=== PATIENT | male | born 1950 | race Caucasian/White ===

== ENCOUNTER 2020-06-08 12:25 | Inpatient (IN) | payer OTHER ==
[~2020-06-08] VITALS: Ht 165.1 cm; Wt 50.0 kg
[2020-06-08] MEDS ORDERED: LOPE1CAP5 PO (12:37)
[2020-06-08 13:18] LABS: HEMATOCRIT 39.8 % (42.0-52.0); HEMOGLOBIN 12.6 g/dl (13.5-17.5); MEAN CORPUSCULAR HEMOGLOBIN 27.8 pg (27.0-33.0); MEAN CORPUSCULAR HGB CONC 31.7 g/dl (32.0-36.5); MEAN CORPUSCULAR VOLUME 87.9 fl (80.0-96.0); PLATELET COUNT, AUTOMATED 184 10^3/uL (150-450); RED BLOOD COUNT 4.53 10^6/uL (4.30-6.10)
--- NOTE | 2020-06-08 13:53 | REP ---
INDICATION: confusion COMPARISON: None. TECHNIQUE: Axial noncontrast images from the skull base to the thoracic inlet with coronal reformations. This CT examination was performed using the following dose reduction techniques: Automated exposure control, adjustment of mA and/or kv according to the patient's size, and use of iterative reconstruction technique. FINDINGS: Age-related atrophy and microvascular ischemic changes are appreciated along with periventricular leukomalacia and encephalomalacia consistent with old infarction. The ventricles and sulci are symmetric. Nielsen-white differentiation is maintained. There is no evidence for acute intracranial hemorrhage, mass/mass effect, pathology or infarction. No extra-axial fluid collection. Calvarium is intact. Paranasal sinuses and mastoid air cells are clear. IMPRESSION: Atrophy and microvascular ischemic changes. No acute intracranial hemorrhage, infarction, or mass/mass effect. <Electronically signed by Floyd Sheppard > 06/08/20 [id number]
[2020-06-08] MEDS ORDERED: LIDOCAINE 2% 5ML JELLY UROJET TOP ONE (13:55)
[2020-06-08] MEDS ORDERED: NS 1,000 ML IV ONE (13:55)
[2020-06-08 13:56] LABS: ALT/SGPT 32 U/L (12-78); BILIRUBIN,DIRECT 0.7 MG/DL (0.0-0.2); BILIRUBIN,TOTAL 1.2 MG/DL (0.2-1.0); BLOOD UREA NITROGEN 35 MG/DL (7-18); C REACTIVE PROTEIN QUANTITATIV 7.38 MG/DL (0.00-0.30); CALCIUM LEVEL 10.3 MG/DL (8.8-10.2); CARBON DIOXIDE LEVEL 28 MEQ/L (21-32); CHLORIDE LEVEL 106 MEQ/L (98-107); CK-MB VALUE MASS 1.1 NG/ML (<3.6); CPK CREATINE PHOSPHOKINASE 36 U/L (39-308); CREATININE FOR GFR 0.99 MG/DL (0.70-1.30); GLOMERULAR FILTRATION RATE > 60.0 (>42); GLUCOSE, FASTING 103 MG/DL (70-100); LDH LACTATE DEHYDROGENASE 198 U/L (87-241); MAGNESIUM LEVEL 2.3 MG/DL (1.8-2.4); MB/CK RELATIVE INDEX 3.06 (< OR =4); POTASSIUM SERUM 4.4 MEQ/L (3.5-5.1); SODIUM LEVEL 138 MEQ/L (136-145); TROPONIN I 0.02 NG/ML (< 0.10)
--- NOTE | 2020-06-08 13:59 | REP ---
INDICATION: Coronavirus workup COMPARISON: 11/11/2010 TECHNIQUE: Portable AP view of the chest FINDINGS: Mediastinum and cardiac silhouette are normal. Lung mendes demonstrate diffuse chronic fibrosis and interstitial changes along with moderate cavitary lesion in the right upper lung zone with surrounding rind. Findings suggest changes related to granulomatous disease. No acute focal consolidation although superimposed viral pneumonia cannot be excluded. No effusion. No pneumothorax. IMPRESSION: Chronic appearing changes as described above suggest sequelae of prior granulomatous disease. Cannot definitively exclude acute viral pneumonia. No focal consolidation or effusion. <Electronically signed by Floyd Sheppard > 06/08/20 [id number]
[2020-06-08 14:31] LABS: ATYPICAL LYMPH 1 % (0-5); BASOPHILS 1 % (0-1); LYMPHOCYTES 10 % (16-44); MONOCYTES 2 % (0-5); NEUTROPHILS 75 % (28-66); PLATELET ESTIMATE NORMAL (NORMAL)
[2020-06-08 14:32] LABS: ANISOCYTOSIS 1+
[2020-06-08] MEDS ORDERED: guaiFENesin/CODEINE SYRUP 5 ML UDC PO PRN (15:20)
[2020-06-08] MEDS ORDERED: LEVALBUTEROL 1.25 MG/0.5 ML CONCENTRATE NEB INH PRN (15:20)
[2020-06-08] MEDS ORDERED: ACETAMINOPHEN TAB 650MG DOSE (2X325MG) PO PRN (15:20)
[2020-06-08] MEDS: LEVALBUTEROL 1.25 MG/0.5 ML CONCENTRATE NEB INH SCH ×2 (15:55→19:19)
[2020-06-08 16:18] VITALS: BP 126/68
[2020-06-08] MEDS: cefTRIAXone SOD 2 GM in D5W MINI-BAG PLUS 50 ML IV SCH (17:11)
--- NOTE | 2020-06-08 17:11 | REP ---
INDICATION: COUGH HEADACHE DIARRHEA R/O PNEUMONIA COMPARISON: None TECHNIQUE: Axial noncontrast images from the thoracic inlet to the upper abdomen with coronal and sagittal reformations. This CT examination was performed using the following dose reduction techniques: Automated exposure control, adjustment of mA and/or kv according to the patient's size, and use of iterative reconstruction technique. FINDINGS: Diffuse chronic reticulonodular interstitial changes along with fibrosis and scarring noted as well as irregular bronchiectasis throughout the bilateral lung mendes and most notably involving the right upper lobe leading to an irregular cavitary lesion. These findings all appear chronic and possibly related to emphysematous disease and prior granulomatous disease. Superimposed scattered small nodular and "tree-in-bud" opacities are identified primarily noted in the bilateral lower lobes along with suspected reactive mediastinal lymph nodes. No effusion. No pneumothorax. Mediastinum demonstrates atherosclerotic changes to the thoracic aorta and coronary arteries without aortic aneurysm or cardiomegaly. No pericardial effusion. Surrounding osseous structures are intact. IMPRESSION: 1. Significant chronic appearing changes as noted above including areas of bronchiectasis primarily extending into the right upper lobe and surrounding a moderate-sized chronic appearing cavitary lesion. Findings most compatible with emphysematous disease and chronic granulomatous disease. 2. Superimposed subtle primarily lower lobe infiltrates consistent with acute pneumonia. Follow-up to resolution recommended. <Electronically signed by Floyd Sheppard > 06/08/20 [id number]
[2020-06-08] MEDS: DOXYCYCLINE HYCLATE 100 MG in D5W MINI-BAG PLUS 100 ML IV SCH (18:01)
--- NOTE | 2020-06-08 18:16 | HPEPDOC ---
[facility] Medical History & Physical Date of Admission June 08, 2020 Date of Service: June 08, 2020 History and Physical CHIEF COMPLAINT: 30 pound weight loss, headache, dry cough, diarrhea HISTORY OF PRESENT ILLNESS: 70-year-old cachectic male with severe protein calorie malnutrition. BMI of 17.8, and hypoalbuminemia, COPD, not oxygen or steroid dependent, actively smoking a pack a day of cigarettes with over [id number] history of smoking, familial adenomatous polyposis status post total proctocolectomy with pouch ileoanal anastomosis, who lives alone with daughter visiting from [place] for the past 2 weeks, brought to the emergency room due to persistent diarrhea with nonbloody, non-mucousy stools 2-3 times a day for several months, 30 pound weight loss with decrease in appetite, generalized weakness, increasing abdominal distention, dry cough with occasional sputum without fever, chills and rigors for the past week, and diffuse headache without neck rigidity. Patient has not taken medications for diarrhea, headache, cough and was recently seen at the [facility] for abnormal findings on CT chest, status post bronchoscopy with bronchial washings negative for bacterial, fungal or viral infection. Patient was due to have a colonoscopy and was referred to Dr. Shane, but patient was noncompliant and did not go to his appointment last year or this year. Patient denies any chest pain, pressure, tightness, palpitations, lightheadedness, dizziness, nausea, vomiting, dysuria, urgency, frequency, polyphagia, polyuria. He denies any unusual lumps, bumps or skin rashes, mouth ulcers, or bloody diarrhea. In the emergency room despite being afebrile with normal white count, patient had bandemia of 11, and CT chest: bronchiectasis primarily extending into the right upper lobe and surrounding a moderate-sized chronic appearing cavitary lesion. Findings most compatible with emphysematous disease and chronic granulomatous disease. Superimposed subtle primarily lower lobe infiltrates consistent with acute pneumonia. Patient is being admitted for pneumonia in the setting of chronic granulomatous disease, emphysema and bronchiectasis with moderate size cavitary lesion status post bronchoscopy with negative bronchial washings. PAST MEDICAL HISTORY: bronchiectasis moderate-sized chronic appearing cavitary lesion. emphysema/COPD chronic granulomatous disease. pneumonia. Failure to thrive/severe protein calorie malnutrition Pulmonary cachexia Familial adenomatous polyp, status post total proctocolectomy with pouch ileoanal anastomosis PAST SURGICAL HISTORY: Familial adenomatous polyp, status post total proctocolectomy with pouch ileoanal anastomosis Bronchoscopy Colonoscopy Right knee replacement SOCIAL HISTORY: Over [id number] history of smoking, still smokes a pack a day. Retired. Denies alcohol abuse, recreational drug use. Healthcare proxy is patient's daughter full code FAMILY HISTORY: Noncontributory due to advanced age ALLERGIES: Please see below. REVIEW OF SYSTEMS: 10 point review of systems negative aside from positive findings in HPI HOME MEDICATIONS: Please see below. PHYSICAL EXAMINATION: VITAL SIGNS: See below GENERAL APPEARANCE: Cachectic . No conversational dyspnea hard of hearing. No tripod positioning. No cyanosis, icterus or jaundice HEENT: Dry mucous membranes, poor dentition, missing teeth. Dental caries. No JVD, thyromegaly, bitemporal wasting. No cervical, supraclavicular or axillary lymphadenopathy. No carotid bruit or stridor., No pallor.. No use of respiratory accessory muscles CARDIOVASCULAR: S1, S2, sinus rhythm, no murmurs, rubs or gallops LUNGS: Exposed ribs with muscle atrophy, diminished, prolonged expiration, crepitations bilaterally ABDOMEN: Distended, tympanitic, tense, no rebound, guarding EXTREMITIES: No cyanosis, clubbing LABORATORY DATA: See below. IMAGING: CT CHEST: 1. Significant chronic appearing changes as noted above including areas of bronchiectasis primarily extending into the right upper lobe and surrounding a moderate-sized chronic appearing cavitary lesion. Findings most compatible with emphysematous disease and chronic granulomatous disease. 2. Superimposed subtle primarily lower lobe infiltrates consistent with acute pneumonia. Follow-up to resolution recommended. MICROBIOLOGY: Please see below. ASSESSMENT: 70-year-old cachectic male with severe protein calorie malnutrition. BMI of 17.8, and hypoalbuminemia, COPD, not oxygen or steroid dependent, actively smoking a pack a day of cigarettes with over [id number] history of smoking, familial adenomatous polyposis status post total proctocolectomy with pouch ileoanal anastomosis, who lives alone with daughter visiting from [place] for the past 2 weeks, brought to the emergency room due to persistent diarrhea with nonbloody, non-mucousy stools 2-3 times a day for several months, 30 pound weight loss with decrease in appetite, generalized weakness, increasing abdominal distention, dry cough with occasional sputum without fever, chills and rigors for the past week, and diffuse headache without neck rigidity. Patient has not taken medications for diarrhea, headache, cough and was recently seen at the [facility] for abnormal findings on CT chest, status post bronchoscopy with bronchial washings negative for bacterial, fungal or viral infection. Patient was due to have a colonoscopy and was referred to Dr. Mariel hernandez, but patient was noncompliant and did not go to his appointment last year or this year. Patient denies any chest pain, pressure, tightness, palpitations, lightheadedness, dizziness, nausea, vomiting, dysuria, urgency, frequency, polyphagia, polyuria. He denies any unusual lumps, bumps or skin rashes, mouth ulcers, or bloody diarrhea. In the emergency room despite being afebrile with normal white count, patient had bandemia of 11, and CT chest: bronchiectasis primarily extending into the right upper lobe and surrounding a moderate-sized chronic appearing cavitary lesion. Findings most compatible with emphysematous disease and chronic granulomatous disease. Superimposed subtle primarily lower lobe infiltrates consistent with acute pneumonia. Patient is being admitted for pneumonia in the setting of chronic granulomatous disease, emphysema and bronchiectasis with moderate size cavitary lesion status post bronchoscopy with negative bronchial washings. Community acquired pneumonia bronchiectasis moderate-sized chronic appearing cavitary lesion, Status post bronchoscopy with negative fungal, viral, bacterial cultures negative for malignancy done at the [facility] in [place] emphysema/COPD chronic granulomatous disease. pneumonia. Failure to thrive/severe protein calorie malnutrition Pulmonary cachexia Familial adenomatous polyp, status post total proctocolectomy with pouch ileoanal anastomosis Anemia of chronic disease Bandemia secondary to community acquired pneumonia Hypercalcemia Abnormal liver function tests with hyperbilirubinemia 30 pound weight loss Diarrhea PLAN: Patient will be admitted as an inpatient for 2 midnights for evaluation of the 30 pound weight loss and treatment for community-acquired pneumonia. Check MRSA screen. Patient has been started on IV ceftriaxone and IV doxycycline day #1. Sputum, blood culture, urine Legionella and streptococcal antigen have all been ordered. Patient has significant amount of bronchiectasis and end-stage emphysema, which will be treated with chest physiotherapy. Mucinex acapella incentive spirometry, nebulizer treatments, aggressive pulmonary toilet. Patient does not appear to be in acute COPD exacerbation and steroids are not needed. Will obtain records from the recent bronchoscopy from the [facility], particularly microbiology results. For the patient's diarrhea, GI panel will be obtained. More concerning issues are the recent weight loss of 30 pounds and failure to thrive with severe protein calorie malnutrition, cachexia with bitemporal wasting. Thyroid function tests are within normal limits. Obtain ultrasound of the gallbladder regarding hyperbilirubinemia to rule out gallstone disease. Research Programmer consult and Ensure Plus 3 times a day with meals and daily at bedtime to improve patient's protein calorie malnutrition. Anti-emetics if needed. Will discuss the case with scientific software engineer in the morning to see if any other inpatient workup is needed.. We'll check parathyroid and vitamin D levels. Regarding the hypercalcemia and continue with IV fluids for now Vital Signs Vital Signs Date Time Temp Pulse Resp B/P (MAP) Pulse Ox O2 Delivery O2 Flow Rate FiO2 06/08/20 16:18 95.0 95 18 126/68 (87) 93 Room Air Laboratory Data Labs 24H Laboratory Tests 2 06/08/20 13:07: Neutrophils (%) (Auto) , Nucleated Red Blood Cells % (auto) 0.0, Neutrophils 75H, Band Neutrophils 11, Lymphocytes (Manual) 10L, Monocytes (Manual) 2, Basophils (Manual) 1, Atypical Lymphocytes 1, Anisocytosis 1+, Platelet Estimate NORMAL, Anion Gap 4L, Glomerular Filtration Rate > 60.0, Calcium Level 10.3H, Magnesium Level 2.3, Total Bilirubin 1.2H, Direct Bilirubin 0.7H, Aspartate Amino Transf (AST/SGOT) 36, Alanine Aminotransferase (ALT/SGPT) 32, Alkaline Phosphatase 263H, Lactate Dehydrogenase 198, Total Creatine Kinase 36L, Creatine Kinase MB 1.1, Creatine Kinase MB Relative Index 3.06, Troponin I 0.02, C- Reactive Protein, Quantitative 7.38H, Total Protein 8.0, Albumin 2.0L, Albumin/Globulin Ratio 0.3, Thyroid Stimulating Hormone (TSH) 3.250 06/08/20 13:32: Lactic Acid Level 1.5, Ammonia 18 06/08/20 13:35: 06/08/20 14:51: CBC/BMP Laboratory Tests 06/08/20 13:07 Microbiology Microbiology 06/08/20 Blood Culture, Received Pending 06/08/20 Blood Culture, Received Pending 06/08/20 Respiratory Virus Panel (PCR) (JEFF) - Final, Complete Home Medications Scheduled Loperamide HCl (Loperamide) 2 Mg Capsule, 2 MG PO TID Allergies Coded Allergies: No Known Allergies (Unverified , 06/08/20) A-FIB/CHADSVASC A-FIB History Current/History of A-Fib/PAF?: No Current PO Anticoag Therapy: No Age/Risk Factor Scoring CHADSVASC: CHADSVASC Response (Comments) Value Age Risk Factor Age 65-74 years old 1 Gender Risk Factor Male 0 Hx of CHF No 0 Hx of HTN No 0 Hx of Stroke/TIA/or VTE No 0 Hx of Diabetes No 0 Hx of Vascular Disease No 0 Total 1 Treatment Treatment ordered: NONE RAYA FRANKLIN MD June 08, 2020 17:51
[2020-06-08 19:02] LABS: HEMOGLOBIN A1c 5.4 %
[2020-06-08] MEDS ORDERED: NICOTINE 21MG/24HR 1 EA TRANSDERMAL TD PRN (19:35)
--- NOTE | 2020-06-08 19:43 | ECGEPIP ---
[facility] - ED Test Date: 2020-06-08 Pat Name: KAYDEN HALL Department: Room: - Gender: Male Fitter Hand: SABRA : 1950 Requested By: Jose Zavala Order Number: [id number] Reading MD: Jose Zavala Measurements Intervals [place] Rate: 86 P: 60 FL: 164 QRS: 29 QRSD: 84 T: 6 QT: 344 QTc: 411 Interpretive Statements Normal sinus rhythm Nonspecific T wave abnormality No prior ECG for comparison Electronically Signed on 06-08-2020 19:43:08 EDT by Jose Zavala
[2020-06-08 20:17] VITALS: BP 116/74
[2020-06-08] MEDS: D5W/0.45% SODIUM CHLORIDE 1,000 ML IV SCH (20:23)
[2020-06-08 20:50] LABS: AMPHETAMINES LEVEL URINE NEGATIVE (NEGATIVE); BARBITURATES URINE NEGATIVE (NEGATIVE); BENZODIAZEPINES URINE NEGATIVE (NEGATIVE); CANNABINOIDS URINE NEGATIVE (NEGATIVE); COCAINE METABOLITE URINE NEGATIVE (NEGATIVE); METHADONE URINE NEGATIVE (NEGATIVE); OPIATES URINE NEGATIVE (NEGATIVE); PHENCYCLIDINE URINE NEGATIVE (NEGATIVE)
[2020-06-09] MEDS ORDERED: NS 1,000 ML IV ONE
[2020-06-09 06:00] VITALS: BP 120/72
[2020-06-09] MEDS: DOXYCYCLINE HYCLATE 100 MG in D5W MINI-BAG PLUS 100 ML IV SCH ×2 (06:25→17:36)
[2020-06-09] MEDS: D5W/0.45% SODIUM CHLORIDE 1,000 ML IV SCH ×2 (06:25→15:45)
[2020-06-09 06:52] LABS: MEAN CORPUSCULAR HEMOGLOBIN 27.6 pg (27.0-33.0); MEAN CORPUSCULAR HGB CONC 31.4 g/dl (32.0-36.5); MEAN CORPUSCULAR VOLUME 87.9 fl (80.0-96.0); PLATELET COUNT, AUTOMATED 156 10^3/uL (150-450); RED BLOOD COUNT 3.98 10^6/uL (4.30-6.10); WHITE BLOOD COUNT 3.5 10^3/uL (4.0-10.0)
[2020-06-09 07:15] LABS: BASOPHILS 1 % (0-1); LYMPHOCYTES 6 % (16-44); MONOCYTES 8 % (0-5); NEUTROPHILS 85 % (28-66)
[2020-06-09 07:16] LABS: PLATELET ESTIMATE NORMAL (NORMAL)
[2020-06-09 07:18] LABS: BLOOD UREA NITROGEN 29 MG/DL (7-18); CALCIUM LEVEL 9.6 MG/DL (8.8-10.2); CARBON DIOXIDE LEVEL 25 MEQ/L (21-32); CHLORIDE LEVEL 110 MEQ/L (98-107); CREATININE FOR GFR 0.82 MG/DL (0.70-1.30); GLOMERULAR FILTRATION RATE > 60.0 (>42); GLUCOSE, FASTING 113 MG/DL (70-100); POTASSIUM SERUM 3.7 MEQ/L (3.5-5.1); SODIUM LEVEL 141 MEQ/L (136-145)
[2020-06-09] MEDS: LEVALBUTEROL 1.25 MG/0.5 ML CONCENTRATE NEB INH SCH ×4 (08:00→19:35)
[2020-06-09] MEDS ORDERED: ISOVUE-370 76% 100ML VIAL As Ordered ONE (08:09)
--- NOTE | 2020-06-09 08:22 | REP ---
INDICATION: elevated bilirubin r/o gallstones COMPARISON: None. TECHNIQUE: Real time alaniz scale ultrasound examination using curved array transducer. FINDINGS: Evaluation is significantly limited due to overlying bowel gas. Visualized portions of the liver demonstrate increased echogenicity suggesting fatty infiltration. Pancreas is incompletely evaluated. Gallbladder demonstrates multiple gallstones without obvious wall thickening or pericholecystic fluid. The common bile duct is not identified due to overlying bowel gas and technical factors. The right kidney is obscured by bowel gas. IMPRESSION: Significantly limited examination due to diffuse bowel gas and associated technical factors. Cholelithiasis noted. <Electronically signed by Floyd Sheppard > 06/09/20 [id number]
--- NOTE | 2020-06-09 08:46 | REP ---
INDICATION: 30 lb weight loss, weakness r/o lymphoma. COMPARISON: None TECHNIQUE: Axial contrast-enhanced images from the lung bases to the pubic symphysis using 100 cc Isovue 370 intravenous contrast material. Coronal and sagittal reformations obtained. This CT examination was performed using the following dose reduction techniques: Automated exposure control, adjustment of mA and/or kv according to the patient's size, and the use of iterative reconstruction technique. FINDINGS: The small and large bowel is diffusely dilated and partially fluid-filled most suggestive of. However the rectosigmoid demonstrates most pronounced level of distension with air-fluid level tapering to the rectum at the point of surgical suture material suggesting prior procedure and obstruction at this level cannot be excluded (series 201; images 131-150). Liver, spleen, pancreas, right adrenal gland and right kidney appear normal. Cholelithiasis noted without evidence for acute cholecystitis. There is a 2.3 cm enhancing left adrenal lesion which is nonspecific in appearance. The left kidney demonstrates cortical atrophy with scarring and 1.5 cm hypodense lesion likely representing cyst. Pelvis demonstrates relatively normal bladder and age-appropriate prostate/seminal vesicles. Patient is noted to be status post aortoiliac stent graft without current aneurysmal dilatation. No significant ascites. No obvious adenopathy. Lung bases demonstrate diffuse interstitial changes with fibrosis and bronchiectasis as well as scattered scarring and scattered subtle primarily lower lobe airspace disease. IMPRESSION: 1. Diffuse distention to the small and large bowel which appears to taper through the rectosigmoid junction at the site of prior surgery. This may represent an area of obstruction and correlation is required. 2. 2.3 cm enhancing left adrenal lesion is nonspecific. Consider pre and postcontrast with delayed images of the abdomen for further investigation. 3. Presumed left renal cyst although ultrasound evaluation/follow-up may be warranted. 4. Cholelithiasis. 5. Further nonacute findings as described above. <Electronically signed by Floyd Sheppard > 06/09/20 [id number]
--- NOTE | 2020-06-09 11:56 | IPNPDOC ---
Date Seen The patient was seen on 06/09/20. Progress Note SUBJECTIVE: Patient denies nausea, vomiting. Chronic loose bowel movements. No chest pain, pressure, tightness. No fever, chills, still with a productive cough, thick white sputum. PHYSICAL EXAMINATION: VITAL SIGNS: See below GENERAL APPEARANCE: Cachectic . No conversational dyspnea hard of hearing. No tripod positioning. No cyanosis, icterus or jaundice HEENT: Dry mucous membranes, poor dentition, missing teeth. Dental caries. No JVD, thyromegaly, bitemporal wasting. No cervical, supraclavicular or axillary lymphadenopathy. No carotid bruit or stridor., No pallor.. No use of respiratory accessory muscles CARDIOVASCULAR: S1, S2, sinus rhythm, no murmurs, rubs or gallops LUNGS: Exposed ribs with muscle atrophy, diminished, prolonged expiration, crepitations bilaterally ABDOMEN: Reducible abdominal hernia Distended, tympanitic, tense, no rebound, guarding EXTREMITIES: No cyanosis, clubbing LABORATORY DATA: See below. IMAGING: CT CHEST: 1. Significant chronic appearing changes as noted above including areas of bronchiectasis primarily extending into the right upper lobe and surrounding a moderate-sized chronic appearing cavitary lesion. Findings most compatible with emphysematous disease and chronic granulomatous disease. 2. Superimposed subtle primarily lower lobe infiltrates consistent with acute pneumonia. Follow-up to resolution recommended. MICROBIOLOGY: Please see below. ASSESSMENT: 70-year-old cachectic male with severe protein calorie malnutrition. BMI of 17.8, and hypoalbuminemia, COPD, not oxygen or steroid dependent, actively smoking a pack a day of cigarettes with over [id number] history of smoking, familial adenomatous polyposis status post total proctocolectomy with pouch ileoanal anastomosis, who lives alone with daughter visiting from [place] for the past 2 weeks, brought to the emergency room due to persistent diarrhea with nonbloody, non-mucousy stools 2-3 times a day for several months, 30 pound weight loss with decrease in appetite, generalized weakness, increasing abdominal distention, dry cough with occasional sputum without fever, chills and rigors for the past week, and diffuse headache without neck rigidity. Patient has not taken medications for diarrhea, headache, cough and was recently seen at the [facility] for abnormal findings on CT chest, status post bronchoscopy with bronchial washings negative for bacterial, fungal or viral infection. Patient was due to have a colonoscopy and was referred to Dr. Alex horan, but patient was noncompliant and did not go to his appointment last year or this year. Patient denies any chest pain, pressure, tightness, palpitations, lightheadedness, dizziness, nausea, vomiting, dysuria, urgency, frequency, polyphagia, polyuria. He denies any unusual lumps, bumps or skin rashes, mouth ulcers, or bloody diarrhea. In the emergency room despite being afebrile with normal white count, patient had bandemia of 11, and CT chest: bronchiectasis primarily extending into the right upper lobe and surrounding a moderate-sized chronic appearing cavitary lesion. Findings most compatible with emphysematous disease and chronic granulomatous disease. Superimposed subtle primarily lower lobe infiltrates consistent with acute pneumonia. Patient is being admitted for pneumonia in the setting of chronic granulomatous disease, emphysema and bronchiectasis with moderate size cavitary lesion status post bronchoscopy with negative bronchial washings. Community acquired pneumonia bronchiectasis moderate-sized chronic appearing cavitary lesion, Status post bronchoscopy with negative fungal, viral, bacterial cultures negative for malignancy done at the [facility] in [place] Reducible abdominal hernia Cholelithiasis emphysema/COPD chronic granulomatous disease. Diffuse distention to the small and large bowel which may represent an area of obstruction 2.3 cm enhancing left adrenal lesion Failure to thrive/severe protein calorie malnutrition Pulmonary cachexia Familial adenomatous polyp, status post total proctocolectomy with pouch ileoanal anastomosis Anemia of chronic disease Bandemia secondary to community acquired pneumonia Hypercalcemia Abnormal liver function tests with hyperbilirubinemia 30 pound weight loss Diarrhea PLAN: Supportive care with IV fluids, IV antibiotics. Surgical consult to evaluate chronic diarrhea which is common with total colectomy. Patient may need a feeding tube if he is agreeable. Otherwise, the trimming assembler has been consulted for supplemental nutrition. . Await culture results from the [facility] regarding recent bronchoscopy for fungal, viral, bacterial cultures Patient lives alone and daughter. Healthcare proxy is worried about him taking care of himself at home and is opting for possible assisted living or placement VS, I&O, 24H, Fishbone Vital Signs/I&O Vital Signs Date Time Temp Pulse Resp B/P (MAP) Pulse Ox O2 Delivery O2 Flow Rate FiO2 06/09/20 11:33 14 06/09/20 06:00 97.1 90 120/72 (88) 95 Room Air I&O- Last 24 Hours up to 6 AM 06/09/20 06:00 Intake Total 100 ml Output Total 250 ml Balance -150 ml Laboratory Data 24H LABS Laboratory Tests 2 06/08/20 13:07: Neutrophils (%) (Auto) , Nucleated Red Blood Cells % (auto) 0.0, Neutrophils 75H, Band Neutrophils 11, Lymphocytes (Manual) 10L, Monocytes (Manual) 2, Basophils (Manual) 1, Atypical Lymphocytes 1, Anisocytosis 1+, Platelet Estimate NORMAL, Anion Gap 4L, Glomerular Filtration Rate > 60.0, Estimated Mean Plasma Glucose 108, Hemoglobin A1c 5.4, Calcium Level 10.3H, Magnesium Level 2.3, Total Bilirubin 1.2H, Direct Bilirubin 0.7H, Aspartate Amino Transf (AST/SGOT) 36, Alanine Aminotransferase (ALT/SGPT) 32, Alkaline Phosphatase 263H, Lactate Dehydrogenase 198, Total Creatine Kinase 36L, Creatine Kinase MB 1.1, Creatine Kinase MB Relative Index 3.06, Troponin I 0.02, C-Reactive Protein, Quantitative 7.38H, Total Protein 8.0, Albumin 2.0L, Albumin/Globulin Ratio 0.3, Thyroid Stimulating Hormone (TSH) 3.250 06/08/20 13:32: Lactic Acid Level 1.5, Ammonia 18 06/08/20 13:35: 06/08/20 14:51: Urine Color MARVIN, Urine Appearance CLEAR, Urine pH 5.0, Urine Specific [place] 1.017, Urine Protein 1+H, Urine Glucose (UA) NEGATIVE, Urine Ketones NEGATIVE, Urine Blood 1+H, Urine Nitrite NEGATIVE, Urine Bilirubin NEGATIVE, Urine Urobilinogen 4.0H, Urine Leukocyte Esterase NEGATIVE, Urine WBC (Auto) 4H, Urine RBC (Auto) 3, Urine Hyaline Casts (Auto) 1, Urine Bacteria (Auto) NEGATIVE, Urine Squamous Epithelial Cells 0, Urine Sperm (Auto) , Urine Opiates Screen NEGATIVE, Urine Methadone Screen NEGATIVE, Urine Barbiturates Screen NEGATIVE, Urine Phencyclidine Screen NEGATIVE, Urine Amphetamines Screen NEGATIVE, Urine Benzodiazepines Screen NEGATIVE, Urine Cocaine Metabolite Screen NEGATIVE, Urine Cannabinoids Screen NEGATIVE 06/08/20 18:32: Methicillin-Resist S.aureus DNA PCR NOT DETECTED 06/08/20 19:55: Whole Blood Ionized Calcium 5.2 06/09/20 06:37: Neutrophils (%) (Auto) , Nucleated Red Blood Cells % (auto) 0.0, Neutrophils 85H, Lymphocytes (Manual) 6L, Monocytes (Manual) 8H, Basophils (Manual) 1, Red Blood Cell Morphology NORMAL, Platelet Estimate NORMAL, Anion Gap 6L, Glomerular Filtration Rate > 60.0, Calcium Level 9.6 CBC/BMP Laboratory Tests 06/08/20 13:07 06/09/20 06:37 Microbiology Microbiology 06/08/20 Gastrointestinal Tract Panel (PCR), Received Pending 06/08/20 Blood Culture, Received Pending 06/08/20 Blood Culture, Received Pending 06/08/20 Respiratory Virus Panel (PCR) (JEFF) - Final, Complete RAYA FRANKLIN MD June 09, 2020 11:48
[2020-06-09 14:00] VITALS: BP 128/77
[2020-06-09] MEDS: cefTRIAXone SOD 2 GM in D5W MINI-BAG PLUS 50 ML IV SCH (16:13)
[2020-06-09 22:00] VITALS: BP 108/68
[2020-06-10] VITALS (8 sets, daily range): BP systolic 97–115; BP diastolic 59–86
[2020-06-10] MEDS: DOXYCYCLINE HYCLATE 100 MG in D5W MINI-BAG PLUS 100 ML IV SCH ×2 (06:14→18:18)
[2020-06-10 06:35] LABS: MEAN CORPUSCULAR HEMOGLOBIN 28.5 pg (27.0-33.0); MEAN CORPUSCULAR HGB CONC 32.4 g/dl (32.0-36.5); MEAN CORPUSCULAR VOLUME 88.1 fl (80.0-96.0); PLATELET COUNT, AUTOMATED 137 10^3/uL (150-450); RED BLOOD COUNT 3.86 10^6/uL (4.30-6.10); WHITE BLOOD COUNT 4.1 10^3/uL (4.0-10.0)
[2020-06-10 06:53] LABS: BLOOD UREA NITROGEN 21 MG/DL (7-18); CALCIUM LEVEL 8.9 MG/DL (8.8-10.2); CARBON DIOXIDE LEVEL 25 MEQ/L (21-32); CHLORIDE LEVEL 111 MEQ/L (98-107); CREATININE FOR GFR 0.65 MG/DL (0.70-1.30); GLOMERULAR FILTRATION RATE > 60.0 (>42); GLUCOSE, FASTING 80 MG/DL (70-100); POTASSIUM SERUM 3.5 MEQ/L (3.5-5.1); SODIUM LEVEL 140 MEQ/L (136-145)
[2020-06-10 07:02] LABS: EOSINOPHILS 1 % (0-3); LYMPHOCYTES 9 % (16-44); MONOCYTES 2 % (0-5); NEUTROPHILS 86 % (28-66); PLATELET ESTIMATE NORMAL (NORMAL)
[2020-06-10] MEDS: LEVALBUTEROL 1.25 MG/0.5 ML CONCENTRATE NEB INH SCH ×4 (07:26→19:36)
--- NOTE | 2020-06-10 09:13 | IPNPDOC ---
Text Note Date of Service The patient was seen on 06/10/20. NOTE 70y/o male with protein calorie malnutrition. I discussed PEG tube wit him and his daughter yesterday and he agreed. Plan is for PEG this am. I will obtain phone consent from the daughter this am. No changes to H+P. Christiano Rudd DO VS,Jordy, I+O VS, Jordy, I+O Laboratory Tests 06/10/20 06:13 Vital Signs Date Time Temp Pulse Resp B/P (MAP) Pulse Ox O2 Delivery O2 Flow Rate FiO2 06/10/20 08:15 98.6 100 20 110/67 (81) 94 Room Air I&O- Last 24 Hours up to 6 AM 06/10/20 06:00 Intake Total 2560 ml Output Total 725 ml Balance 1835 ml KYA RUDD DO June 10, 2020 09:13
[2020-06-10] MEDS ORDERED: LIDOCAINE 2% 100MG/5ML SDV (FOR ANES.) As Ordered ONE (09:14)
[2020-06-10] MEDS ORDERED: propofoL 200 MG/20 ML VIAL As Ordered ONE (09:14)
[2020-06-10] MEDS ORDERED: fentaNYL 100 MCG/2 ML INJECTION (J3010) As Ordered ONE (09:14)
--- NOTE | 2020-06-10 09:50 | ROOR ---
Patient Name: Tamara Fuentes Procedure Date: 06/10/2020 9:23 AM Date of : 1950 Age: 70 Room: [facility] Gender: Male Note Status: Finalized Procedure: Upper GI endoscopy Indications: Malnutrition Providers: DO Jabier Sheth MD: 2. Inpatient 2. Inpatient Requesting Provider: Medicines: Propofol per Anesthesia Complications: No immediate complications. Procedure: Pre-Anesthesia Assessment: - Prior to the procedure, a History and Physical was performed, and patient medications and allergies were reviewed. The patient is competent. The risks and benefits of the procedure and the sedation options and risks were discussed with the patient. All questions were answered and informed consent was obtained. Patient identification and proposed procedure were verified by the physician, the nurse, the anesthesiologist and the office machine technician in the endoscopy suite. Mental Status Examination: alert and oriented. Airway Examination: normal oropharyngeal airway and neck mobility. Respiratory Examination: clear to auscultation. CV Examination: normal. Prophylactic Antibiotics: The patient does not require prophylactic antibiotics. Prior Anticoagulants: The patient has taken no previous anticoagulant or antiplatelet agents. ASA Grade Assessment: III - A patient with severe systemic disease. After reviewing the risks and benefits, the patient was deemed in satisfactory condition to undergo the procedure. The anesthesia plan was to use monitored anesthesia care (MAC). Immediately prior to administration of medications, the patient was re-assessed for adequacy to receive sedatives. The heart rate, respiratory rate, oxygen saturations, blood pressure, adequacy of pulmonary ventilation, and response to care were monitored throughout the procedure. The physical status of the patient was re-assessed after the procedure. The Endoscope was introduced through the mouth, and advanced to the pylorus. The upper GI endoscopy was accomplished without difficulty. The patient tolerated the procedure well. Findings: Placement of an externally removable PEG with no T-fasteners was successfully completed. The external bumper was at the 3.0 cm marking on the tube. Estimated blood loss was minimal. Impression: - An externally removable PEG placement was successfully completed. - No specimens collected. Recommendation: - [facility] to [facility] for [facility] care. Procedure Code(s): --- Professional --- 70442, 52, Esophagogastroduodenoscopy, flexible, transoral; with directed placement of percutaneous gastrostomy tube Diagnosis Code(s): --- Professional --- E46, Unspecified protein-calorie malnutrition CPT copyright 2019 [employer]. All rights reserved. The codes documented in this report are preliminary and upon auditing coder review may be revised to meet current compliance requirements. Duarte Rudd DO 06/10/2020 9:50:23 AM Electronically signed by Duarte Rudd DO Number of Addenda: 0 Note Initiated On: 06/10/2020 9:23 AM Estimated Blood Loss: Estimated blood loss was minimal.
[2020-06-10] MEDS: cefTRIAXone SOD 2 GM in D5W MINI-BAG PLUS 50 ML IV SCH (17:32)
--- NOTE | 2020-06-10 19:38 | IPNPDOC ---
Date Seen The patient was seen on 06/10/20. Progress Note SUBJECTIVE: PEG placed today, cannot use until 06/11/20 per surgery. Would appreciate nutrition recommendations for tube feedings. Awaiting [place] records for bronchoscopy results. OBJECTIVE: PHYSICAL EXAMINATION: VITAL SIGNS: See below GENERAL APPEARANCE: Cachectic, hard of hearing, NAD, resting in bed. AAOx2 HEENT: Dry mucous membranes, poor dentition, missing teeth. Dental caries. No JVD, thyromegaly, bitemporal wasting. No carotid bruit or stridor., No pallor.. No use of respiratory accessory muscles CARDIOVASCULAR: S1, S2, sinus rhythm, no murmurs, rubs or gallops LUNGS: Exposed ribs with muscle atrophy, diminished, prolonged expiration, crepitations bilaterally ABDOMEN: PEG tube in place in left upper quadrant. Reducible abdominal hernia Distended, tympanitic, tense, no rebound, guarding EXTREMITIES: No cyanosis, clubbing NEURO: CN 2-12 intact, no focal deficits PSYCH: mood and affect appropriate. LABORATORY DATA: See below. MICRO: Resp panel neg BCx NG GI panel pending IMAGING: Gallbladder US 06/09/20: Significantly limited examination due to diffuse bowel gas and associated technical factors. Cholelithiasis noted. CT CHEST: 1. Significant chronic appearing changes as noted above including areas of bronchiectasis primarily extending into the right upper lobe and surrounding a moderate-sized chronic appearing cavitary lesion. Findings most compatible with emphysematous disease and chronic granulomatous disease. 2. Superimposed subtle primarily lower lobe infiltrates consistent with acute pneumonia. Follow-up to resolution recommended. MICROBIOLOGY: Please see below. ASSESSMENT: 70-year-old cachectic male with severe protein calorie malnutrition. BMI of 17.8, and hypoalbuminemia, COPD, not oxygen or steroid dependent, actively smoking a pack a day of cigarettes with over [id number] history of smoking, familial adenomatous polyposis status post total proctocolectomy with pouch ileoanal anastomosis admitted for pneumonia in the setting of chronic granulomatous disease, emphysema and bronchiectasis with moderate size cavitary lesion status post bronchoscopy with negative bronchial washings, FTT, chronic diarrhea. Failure to thrive/severe protein calorie malnutrition s/p PEG tube Chronic diarrhea likely 2/2 to total colectomy Community acquired pneumonia Bronchiectasis Moderate-sized chronic appearing cavitary lesion s/p bronchoscopy with negative fungal, viral, bacterial cultures negative for malignancy done at the [facility] in [place] (do not have records so unsure how previous attending knows this- requesting official documents) Reducible abdominal hernia Cholelithiasis Emphysema/COPD Chronic granulomatous disease 2.3 cm enhancing left adrenal lesion Pulmonary cachexia Familial adenomatous polyp, status post total proctocolectomy with pouch ileoanal anastomosis Anemia of chronic disease Bandemia secondary to community acquired pneumonia Hypercalcemia Abnormal liver function tests with hyperbilirubinemia PLAN: PEG tube placed by surgery today, tolerated procedure well. TF to start 06/11/20 per surgery, will need nutrition to reevaluate- will need to clarify that patient will no longer be taking oral intake but just TF- as it was previously recommended both. F/u official [place] records which did not appear to be requested yet upon further investigation today. Per notes, Healthcare proxy is worried about him taking care of himself at home and is opting for possible assisted living or placement. Will clarify in the AM with SW. VS, I&O, 24H, Fishbone Vital Signs/I&O Vital Signs Date Time Temp Pulse Resp B/P (MAP) Pulse Ox O2 Delivery O2 Flow Rate FiO2 06/10/20 15:30 98.4 82 19 110/86 (94) 91 Room Air I&O- Last 24 Hours up to 6 AM 06/10/20 06:00 Intake Total 2560 ml Output Total 725 ml Balance 1835 ml Laboratory Data 24H LABS Laboratory Tests 2 06/10/20 06:13: Neutrophils (%) (Auto) , Nucleated Red Blood Cells % (auto) 0.0, Neutrophils 86H, Band Neutrophils 2, Lymphocytes (Manual) 9L, Monocytes (Manual) 2, Eosinophils (Manual) 1, Red Blood Cell Morphology NORMAL, Platelet Estimate NORMAL, Anion Gap 4L, Glomerular Filtration Rate > 60.0, Calcium Level 8.9 CBC/BMP Laboratory Tests 06/10/20 06:13 Microbiology Microbiology 06/08/20 Gastrointestinal Tract Panel (PCR), Ordered Pending 06/08/20 Blood Culture - Preliminary, Resulted No Growth after 48 hours. All Specime... 06/08/20 Blood Culture - Preliminary, Resulted No Growth after 48 hours. All Specime... 06/08/20 Respiratory Virus Panel (PCR) (JEFF) - Final, Complete Anna Bautista MD June 10, 2020 19:38
[2020-06-10] MEDS: D5W/0.45% SODIUM CHLORIDE 1,000 ML IV SCH (20:58)
[2020-06-11] MEDS: DOXYCYCLINE HYCLATE 100 MG in D5W MINI-BAG PLUS 100 ML IV SCH (05:31)
[2020-06-11] MEDS: D5W/0.45% SODIUM CHLORIDE 1,000 ML IV SCH ×2 (05:31→12:00)
[2020-06-11 06:00] VITALS: BP 115/68
[2020-06-11 06:09] LABS: BASO % 0.6 % (0.0-1.0); EOS % 0.8 % (0.0-3.0); HEMATOCRIT 34.8 % (42.0-52.0); LYMPH # 0.5 10^3/uL (1.5-5.0); MEAN CORPUSCULAR HEMOGLOBIN 27.6 pg (27.0-33.0); MEAN CORPUSCULAR HGB CONC 31.6 g/dl (32.0-36.5); MEAN CORPUSCULAR VOLUME 87.4 fl (80.0-96.0); MONO # 0.2 10^3/uL (0.0-0.8); MONO % 4.5 % (2.0-8.0); NEUTROPHILS # 2.8 10^3/uL (1.5-8.5); PLATELET COUNT, AUTOMATED 143 10^3/uL (150-450); RED BLOOD COUNT 3.98 10^6/uL (4.30-6.10); WHITE BLOOD COUNT 3.6 10^3/uL (4.0-10.0)
[2020-06-11 06:32] LABS: BLOOD UREA NITROGEN 21 MG/DL (7-18); CALCIUM LEVEL 9.1 MG/DL (8.8-10.2); CARBON DIOXIDE LEVEL 26 MEQ/L (21-32); CHLORIDE LEVEL 113 MEQ/L (98-107); CREATININE FOR GFR 0.65 MG/DL (0.70-1.30); GLOMERULAR FILTRATION RATE > 60.0 (>42); GLUCOSE, FASTING 80 MG/DL (70-100); POTASSIUM SERUM 3.4 MEQ/L (3.5-5.1); SODIUM LEVEL 143 MEQ/L (136-145)
[2020-06-11] MEDS: LEVALBUTEROL 1.25 MG/0.5 ML CONCENTRATE NEB INH SCH ×4 (07:46→21:00)
[2020-06-11] MEDS ORDERED: POTASSIUM CHLORIDE 10% LIQ 20 MEQ/15 ML UDC GT ONE (08:30)
--- NOTE | 2020-06-11 12:24 | ECHO ---
DATE OF PROCEDURE: 06/10/2020 Age: 70 Gender: Male Height: 65 inches Weight: 110 pounds Body surface area: 1.53 m2 PATIENT LOCATION: Inpatient [address] [place] [address], Room 5133. REFERRING PHYSICIAN: Petrona Knox M.D. INDICATION: Dyspnea. MEASUREMENTS: 2D Measurements: RV 3.2 cm LV 4.2 cm Septum 0.9 cm Posterior wall 0.9 cm Aortic Root 3.6 cm LA 3.7 cm LVEF 75% Doppler Measurements: AV 1.05 m/s LVOT 0.8 m/s LVOT diameter 2.0 cm MV-E 57, A 74, E/A ratio 0.8 Early mitral deceleration time 140 msec E prime medial 10, A prime medial 18, E prime lateral 12.9 PV Could not be visualized RVSP 21 mmHg (using an estimated central venous pressure of 7 mmHg, as we could not visualize his inferior vena cava) COMMENTS: Normal sinus rhythm without intraventricular conduction disturbance. Technically difficult study in light of the patients body habitus, but diagnostically useful information was still obtained. M-mode and two-dimensional echocardiography was performed with pulse, continuous wave, color flow, and tissue Doppler studies. Normal left ventricular size, wall thickness, and hyperkinetic wall motion. Normal left atrial size with grade 1 LV diastolic dysfunction, but current estimated mean left atrial pressure well within normal limits. Normal right heart chamber sizes and motion and estimated pulmonary arterial pressure. We could not visualize his inferior vena cava to estimate his central venous pressure. Normal aortic dimensions. Mild aortic valvular sclerosis without functional abnormality. Mild degenerative changes of the mitral valve apparatus with adequate leaflet excursion and no posterior systolic buckling and no apparent insufficiency. Normal appearing tricuspid valve with very mild insufficiency. No apparent intracardiac mass or pericardial effusion. MTDD
[2020-06-11 14:00] VITALS: BP 116/69
--- NOTE | 2020-06-11 15:22 | IPNPDOC ---
Date Seen The patient was seen on 06/11/20. Progress Note SUBJECTIVE: TF to start through [facility] today[facility], [facility] report- no organisms seen. Procalcitonin low, WBC wnl, afebrile so abx stopped after 4 days (doxy, ceftriaxone). PT/OT ordered as patient is not wanting placement, f/u results. Denies incr SOB, fevers, chills, chest pain, n/v/d. OBJECTIVE: PHYSICAL EXAMINATION: VITAL SIGNS: See below GENERAL APPEARANCE: Cachectic, hard of hearing, NAD, resting in bed. AAOx2, at times confused more than this HEENT: Dry mucous membranes, poor dentition, missing teeth. Dental caries. No JVD, thyromegaly, bitemporal wasting. No carotid bruit or stridor., No pallor. No use of respiratory accessory muscles CARDIOVASCULAR: S1, S2, sinus rhythm, no murmurs, rubs or gallops LUNGS: Exposed ribs with muscle atrophy, diminished, prolonged expiration, crepitations bilaterally ABDOMEN: PEG tube in place in left upper quadrant. Reducible abdominal hernia, slightly distended, tympanitic, tense, no rebound, guarding EXTREMITIES: No cyanosis, clubbing NEURO: CN 2-12 intact, no focal deficits PSYCH: mood and affect appropriate. LABORATORY DATA: See below. MICRO: Resp panel neg BCx NG IMAGING: Gallbladder US 06/09/20: Significantly limited examination due to diffuse bowel gas and associated technical factors. Cholelithiasis noted. CT CHEST: 1. Significant chronic appearing changes as noted above including areas of bronchiectasis primarily extending into the right upper lobe and surrounding a moderate-sized chronic appearing cavitary lesion. Findings most compatible with emphysematous disease and chronic granulomatous disease. 2. Superimposed subtle primarily lower lobe infiltrates consistent with acute pneumonia. Follow-up to resolution recommended. MICROBIOLOGY: Please see below. ASSESSMENT: 70-year-old cachectic male with severe protein calorie malnutrition. BMI of 17.8, and hypoalbuminemia, COPD, not oxygen or steroid dependent, actively smoking a pack a day of cigarettes with over 63-[id number] history of smoking, familial adenomatous polyposis status post total proctocolectomy with pouch ileoanal anastomosis admitted for pneumonia in the setting of chronic granulomatous disease, emphysema and bronchiectasis with moderate size cavitary lesion status post bronchoscopy with negative bronchial washings, FTT, chronic diarrhea. Failure to thrive/severe protein calorie malnutrition s/p PEG tube Chronic diarrhea likely 2/2 to total colectomy Acute hypokalemia likely 2/2 to decreased PO intake Bronchiectasis Moderate-sized chronic appearing cavitary lesion s/p bronchoscopy with negative fungal, viral, bacterial cultures negative for malignancy done at the [facility] in [place] (do not have records so unsure how previous attending knows this- requesting official documents) Reducible abdominal hernia Cholelithiasis Emphysema/COPD Chronic granulomatous disease 2.3 cm enhancing left adrenal lesion Pulmonary cachexia Familial adenomatous polyp, status post total proctocolectomy with pouch ileoanal anastomosis Anemia of chronic disease Bandemia secondary to community acquired pneumonia Hypercalcemia Abnormal liver function tests with hyperbilirubinemia PLAN: TF starting today with PEG tube. Replaced KCl via PEG. Official [place] records reviewed, stopped abx (s/p 4 days of tx with ceftriaxone and doxycycline) with low suspicion of PNA. Patient is refusing placement, PT/OT ordered to evaluate. He would like to go home if possible. PFS to discuss further with daughter to help establish discharge plan. VS, I&O, 24H, [facility] Vital Signs/I&O Vital Signs Date Time Temp Pulse Resp B/P (MAP) Pulse Ox O2 Delivery O2 Flow Rate FiO2 06/11/20 14:00 98.6 89 16 116/69 (85) 96 06/11/20 06:00 Room Air I&O- Last 24 Hours up to 6 AM 06/11/20 05:59 Intake Total 600 ml Output Total 400 ml Balance 200 ml Laboratory Data 24H LABS Laboratory Tests 2 06/11/20 05:48: Immature Granulocyte % (Auto) 1.1, Neutrophils (%) (Auto) 79.0H, Lymphocytes (%) (Auto) 14.0L, Monocytes (%) (Auto) 4.5, Eosinophils (%) (Auto) 0.8, Basophils (%) (Auto) 0.6, Neutrophils # (Auto) 2.8, Lymphocytes # (Auto) 0.5L, Monocytes # (Auto) 0.2, Eosinophils # (Auto) 0.0, Basophils # (Auto) 0.0, Nucleated Red Blood Cells % (auto) 0.0, Anion Gap 4L, Glomerular Filtration Rate > 60.0, Calcium Level 9.1 CBC/BMP Laboratory Tests 06/11/20 05:48 Microbiology Microbiology 06/08/20 Blood Culture - Preliminary, Resulted No Growth after 72 hours. All specime... 06/08/20 Blood Culture - Preliminary, Resulted No Growth after 72 hours. All specime... 06/08/20 Respiratory Virus Panel (PCR) (JEFF) - Final, Complete Anna Bautista MD June 11, 2020 15:22
[2020-06-11 22:00] VITALS: BP 127/82
[2020-06-12] MEDS: D5W/0.45% SODIUM CHLORIDE 1,000 ML IV SCH (01:26)
[2020-06-12 06:00] VITALS: BP 126/80
[2020-06-12 06:48] LABS: HEMATOCRIT 35.6 % (42.0-52.0); HEMOGLOBIN 11.3 g/dl (13.5-17.5); MEAN CORPUSCULAR HEMOGLOBIN 28.1 pg (27.0-33.0); MEAN CORPUSCULAR HGB CONC 31.7 g/dl (32.0-36.5); MEAN CORPUSCULAR VOLUME 88.6 fl (80.0-96.0); PLATELET COUNT, AUTOMATED 127 10^3/uL (150-450); RED BLOOD COUNT 4.02 10^6/uL (4.30-6.10); WHITE BLOOD COUNT 3.7 10^3/uL (4.0-10.0)
[2020-06-12 07:14] LABS: BLOOD UREA NITROGEN 16 MG/DL (7-18); CALCIUM LEVEL 8.5 MG/DL (8.8-10.2); CARBON DIOXIDE LEVEL 28 MEQ/L (21-32); CHLORIDE LEVEL 111 MEQ/L (98-107); CREATININE FOR GFR 0.59 MG/DL (0.70-1.30); GLOMERULAR FILTRATION RATE > 60.0 (>42); GLUCOSE, FASTING 108 MG/DL (70-100); POTASSIUM SERUM 3.7 MEQ/L (3.5-5.1); SODIUM LEVEL 143 MEQ/L (136-145)
[2020-06-12] MEDS: LEVALBUTEROL 1.25 MG/0.5 ML CONCENTRATE NEB INH SCH ×3 (07:29→15:09)
[2020-06-12 07:44] LABS: ANISOCYTOSIS 1+; BASOPHILS 1 % (0-1); EOSINOPHILS 1 % (0-3); LYMPHOCYTES 8 % (16-44); MONOCYTES 1 % (0-5); NEUTROPHILS 89 % (28-66); PLATELET ESTIMATE DECREASED (NORMAL)
[2020-06-12 09:00] VITALS: BP 109/55
[2020-06-12 10:37] LABS: NT-PRO BNP 1779 PG/ML (<125)
--- NOTE | 2020-06-12 11:23 | REP ---
INDICATION: incr SOB COMPARISON: CT dated 06/08/2020 TECHNIQUE: PA and lateral. FINDINGS: Diffuse bilateral pleuroparenchymal changes including somewhat irregular cavitary lesion in the right apex appear relatively unchanged compared to prior examination.. IMPRESSION: Diffuse bilateral pleuroparenchymal changes similar to prior CT examination which demonstrated acute lower lobe infiltrates with chronic interstitial fibrosis and chronic cavitary lesion in the right apex. <Electronically signed by Floyd Sheppard > 06/12/20 111
[2020-06-12 14:00] VITALS: BP 90/41
[2020-06-12] MEDS ORDERED: FUROSEMIDE 20MG/2ML VIAL (J1940) IV ONE (15:05)
--- NOTE | 2020-06-12 15:51 | IPNPDOC ---
Date Seen The patient was seen on 06/12/20. Progress Note SUBJECTIVE: More SOB, incr RR this AM. Repeat CXR does not look much changed from prior imaging, BNP elevated at > 1779, given 20 mg IV lasix. Discussed decline with his daughter and HCP Marcia. Stated that she would like to make DNR/DNI and possibly comfort. also discussed with ST and Dr. Vazquez (ENT), who offered to do scope. Offered this to daughter who says she would likely just like to make comfort. She will be coming in today to make final decisions with her family. OBJECTIVE PHYSICAL EXAMINATION: VITAL SIGNS: See below GENERAL APPEARANCE: Cachectic, hard of hearing, appears more SOB at rest and with talking, AAOx1 to self, more confused today HEENT: Dry mucous membranes, poor dentition, missing teeth. Dental caries. No JVD, thyromegaly, bitemporal wasting. No carotid bruit or stridor., No pallor. CARDIOVASCULAR: S1, S2, sinus rhythm, no murmurs, rubs or gallops LUNGS: Increased crackles in lower lung mendes, Exposed ribs with muscle atrophy, diminished, prolonged expiration, crepitations bilaterally ABDOMEN: PEG tube in place in left upper quadrant. Reducible abdominal hernia, slightly distended, tympanitic, tense, no rebound, guarding EXTREMITIES: No cyanosis, clubbing NEURO: CN 2-12 intact, no focal deficits PSYCH: mood and affect appropriate. LABORATORY DATA: See below. MICRO: Resp panel neg BCx NG IMAGING: CXR: Diffuse bilateral pleuroparenchymal changes similar to prior CT examination which demonstrated acute lower lobe infiltrates with chronic interstitial fibrosis and chronic cavitary lesion in the right apex. Gallbladder US 06/09/20: Significantly limited examination due to diffuse bowel gas and associated technical factors. Cholelithiasis noted. CT CHEST: 1. Significant chronic appearing changes as noted above including areas of bronchiectasis primarily extending into the right upper lobe and surrounding a moderate-sized chronic appearing cavitary lesion. Findings most compatible with emphysematous disease and chronic granulomatous disease. 2. Superimposed subtle primarily lower lobe infiltrates consistent with acute pneumonia. Follow-up to resolution recommended. MICROBIOLOGY: Please see below. ASSESSMENT: 70-year-old cachectic male with severe protein calorie malnutrition. BMI of 17.8, and hypoalbuminemia, COPD, not oxygen or steroid dependent, actively smoking a pack a day of cigarettes with over [id number] history of smoking, familial adenomatous polyposis status post total proctocolectomy with pouch ileoanal anastomosis admitted for pneumonia in the setting of chronic granulomatous disease, emphysema and bronchiectasis with moderate size cavitary lesion status post bronchoscopy with negative bronchial washings, FTT, chronic diarrhea. SOB likely MF to underlying cavitary lesion, bronchiectasis, lung nodules, COPD, chronic granulomatous disease and possible CHF Elevated BNP, cannot r/o CHF with exacerbation Failure to thrive/severe protein calorie malnutrition s/p PEG tube Chronic diarrhea likely 2/2 to total colectomy Acute hypokalemia likely 2/2 to decreased PO intake Bronchiectasis Moderate-sized chronic appearing cavitary lesion s/p bronchoscopy with negative fungal, viral, bacterial cultures negative for malignancy done at the [facility] in [place] (do not have records so unsure how previous attending knows this- requesting official documents) Reducible abdominal hernia Cholelithiasis Emphysema/COPD Chronic granulomatous disease 2.3 cm enhancing left adrenal lesion Pulmonary cachexia Familial adenomatous polyp, status post total proctocolectomy with pouch ileoanal anastomosis Anemia of chronic disease Bandemia secondary to community acquired pneumonia Hypercalcemia Abnormal liver function tests with hyperbilirubinemia PLAN: Tolerating tube feeds today, stopped iVFs earlier. BNP elevated and needed to give 20 mg IV lasix due to possible CHF. Afebrile, WBC wnl, increased O2 demand. CXR above. Daughter may advance LOC further to [employer] and do home with hospice, wants to see today with brothers before making further advancement of care. She did not wish to have ENT scope, will hold off on additional testing for now until we have touched base with family after arrival. VS, I&O, 24H, Fishbone Vital Signs/I&O Vital Signs Date Time Temp Pulse Resp B/P (MAP) Pulse Ox O2 Delivery O2 Flow Rate FiO2 06/12/20 14:00 99.0 91 16 90/41 (57) 93 Nasal Cannula 5.0 I&O- Last 24 Hours up to 6 AM 06/12/20 05:59 Intake Total 680 ml Output Total 200 ml Balance 480 ml Laboratory Data 24H LABS Laboratory Tests 2 06/12/20 06:20: Neutrophils (%) (Auto) , Nucleated Red Blood Cells % (auto) 0.0, Neutrophils 89H, Lymphocytes (Manual) 8L, Monocytes (Manual) 1, Eosinophils (Manual) 1, Basophils (Manual) 1, Anisocytosis 1+, Platelet Estimate DECREASED, Anion Gap 4L, Glomerular Filtration Rate > 60.0, Calcium Level 8.5L, NI-[id number]-[id number]-Type Natriuretic Peptide 1779H CBC/BMP Laboratory Tests 06/12/20 06:20 Microbiology Microbiology 06/08/20 Blood Culture - Preliminary, Resulted No Growth after 72 hours. All specime... 06/08/20 Blood Culture - Preliminary, Resulted No Growth after 72 hours. All specime... 06/08/20 Respiratory Virus Panel (PCR) ([facility]) - Final, Complete Anna Bautista MD June 12, 2020 15:51
[2020-06-12] MEDS ORDERED: SCOPOLAMINE 1MG TRANSDERMAL PATCH TOP PRN (17:05)
[2020-06-12] MEDS ORDERED: LORazepam 1 MG TAB PO PRN (17:05)
[2020-06-12] MEDS ORDERED: ONDANSETRON 4 MG ORAL DISINTEGRATING TAB PO PRN (17:05)
[2020-06-12] MEDS ORDERED: ATROPINE SULFATE 1% OP SOLN 2 ML BTL SL PRN (17:05)
[2020-06-12] MEDS: MORPHINE 10MG/0.5ML ORAL CONCENTRATE SOLUTION U/D SL PRN ×2 (18:33→20:20)
[2020-06-13] MEDS: MORPHINE 10MG/0.5ML ORAL CONCENTRATE SOLUTION U/D SL PRN ×2 (00:29→22:54)
[2020-06-14] MEDS: MORPHINE 10MG/0.5ML ORAL CONCENTRATE SOLUTION U/D SL PRN ×4 (03:03→17:02)
[2020-06-15] MEDS: MORPHINE 10MG/0.5ML ORAL CONCENTRATE SOLUTION U/D SL PRN ×2 (08:24→12:22)
--- NOTE | 2020-06-15 16:54 | DS.PDOC ---
Discharge Summary General Date of Admission June 08, 2020 at 17:35 Date of Discharge 06/15/20 Attending Physician: Anna Bautista MD Discharge Summary THIS IS A SUMMARY HISTORY OF PRESENT ILLNESS: 70-year-old cachectic male with severe protein calorie malnutrition. BMI of 17.8, and hypoalbuminemia, COPD, not oxygen or steroid dependent, actively smoking a pack a day of cigarettes with over [id number] history of smoking, familial adenomatous polyposis status post total proctocolectomy with pouch ileoanal anastomosis, who lives alone with daughter visiting from [place] for the past 2 weeks, brought to the emergency room due to persistent diarrhea with nonbloody, non-mucousy stools 2-3 times a day for several months, 30 pound weight loss with decrease in appetite, generalized weakness, increasing abdominal distention, dry cough with occasional sputum without fever, chills and rigors for the past week, and diffuse headache without neck rigidity. Patient has not taken medications for diarrhea, headache, cough and was recently seen at the [facility] for abnormal findings on CT chest, status post bronchoscopy with bronchial washings negative for bacterial, fungal or viral infection. Patient was due to have a colonoscopy and was referred to Dr. Shane, but patient was noncompliant and did not go to his appointment last year or this year. Patient denies any chest pain, pressure, tightness, palpitations, lightheadedness, dizziness, nausea, vomiting, dysuria, urgency, frequency, polyphagia, polyuria. He denies any unusual lumps, bumps or skin rashes, mouth ulcers, or bloody diarrhea. In the emergency room despite being afebrile with normal white count, patient had bandemia of 11, and CT chest: bronchiectasis primarily extending into the right upper lobe and surrounding a moderate-sized chronic appearing cavitary lesion. Findings most compatible with emphysematous disease and chronic granulomatous disease. Superimposed subtle primarily lower lobe infiltrates consistent with acute pneumonia. Patient is being admitted for pneumonia in the setting of chronic granulomatous disease, emphysema and bronchiectasis with moderate size cavitary lesion status post bronchoscopy with negative bronchial washings. HOSPITAL COURSE: SOB was thought to be likely multifactorial to underlying cavitary lesion, bronchiectasis, lung nodules, COPD, chronic granulomatous disease and possible CHF. Patient also was suffering from significant failure to thrive/severe protein calorie malnutrition. Surgery was consulted due to chronic diarrhea and surgery thought this was likely 2/2 to total colectomy and is common to see in these patients. PEG tube was offered to patient. Patient and family requested that PEG tube be placed for protein calorie malnutrition, this was done on 06/10/20. He tolerated tube feedings well and IVFs were stopped. [facility], abx were later stopped as findings on imaging and blood did not point toward ongoing PNA. BNP elevated and needed to give 20 mg IV lasix due to possible CHF. Afebrile, WBC wnl, increased O2 demand. On 06/12/20 the patient's daughter Marcia (HCP) was called and updated on increased O2 demand and decompensating state of patient. I had spoke with Speech therapy earlier and they stated that patient "winced" with chewing and that a jaw issue may be causing his decreased intake. I discussed with ENT (Dr. Vazquez) who offered to do scope . When relayed the message to Marcia that same day, she did not wish to have ENT scope. On 06/12/20 in the evening, patient's daughter (Marcia- HCP) and son later came to the hospital and met with their father. Decision was made to make [employer]. MOLST form was completed with Marcia and orders changed to [employer] in computer. Hospice consult was placed. Patient was unable to get home with hospice before the weekend of 06/14-10/28 per PFS and patient remained at the the hospital. On 06/15/20 patient was reaching out into the air, scolding imaginary people in the room that he was " not ready to go yet". On 06/15/20 at 2:15 PM time of was called. PAST MEDICAL HISTORY: bronchiectasis moderate-sized chronic appearing cavitary lesion. emphysema/COPD chronic granulomatous disease. pneumonia. Failure to thrive/severe protein calorie malnutrition Pulmonary cachexia Familial adenomatous polyp, status post total proctocolectomy with pouch ileoanal anastomosis PAST SURGICAL HISTORY: Familial adenomatous polyp, status post total proctocolectomy with pouch ileoanal anastomosis Bronchoscopy Colonoscopy Right knee replacement SOCIAL HISTORY: Over [id number] history of smoking, still smokes a pack a day. Retired. Denies alcohol abuse, recreational drug use. Healthcare proxy is patient's daughter full code FAMILY HISTORY: Noncontributory due to advanced age PHYSICAL EXAMINATION (prior to expiration): GENERAL APPEARANCE: Cachectic, laying in bed, reaching out to air, speaking to people who are not present HEENT: Dry mucous membranes, poor dentition, missing teeth. Dental caries. No JVD, thyromegaly, bitemporal wasting. CARDIOVASCULAR: S1, S2, sinus rhythm, no murmurs, rubs or gallops LUNGS: Exposed ribs with muscle atrophy, diminished, prolonged expiration ABDOMEN: PEG tube in place in left upper quadrant. Reducible abdominal hernia, slightly distended, tympanitic, tense, no rebound, guarding EXTREMITIES: mild mottling, clubbing LABORATORY DATA: See below. MICRO: Resp panel neg BCx NG IMAGING: CXR: Diffuse bilateral pleuroparenchymal changes similar to prior CT examination which demonstrated acute lower lobe infiltrates with chronic interstitial fibr osis and chronic cavitary lesion in the right apex. Gallbladder US 06/09/20: Significantly limited examination due to diffuse bowel gas and associated technical factors. Cholelithiasis noted. CT CHEST: 1. Significant chronic appearing changes as noted above including areas of bronchiectasis primarily extending into the right upper lobe and surrounding a moderate-sized chronic appearing cavitary lesion. Findings most compatible with emphysematous disease and chronic granulomatous disease. 2. Superimposed subtle primarily lower lobe infiltrates consistent with acute pneumonia. Follow-up to resolution recommended. DIAGNOSES AT TIME OF : Failure to thrive/severe protein calorie malnutrition s/p PEG tube SOB likely MF to underlying cavitary lesion, bronchiectasis, lung nodules, COPD, chronic granulomatous disease and possible CHF Elevated BNP, cannot r/o CHF with exacerbation Chronic diarrhea likely 2/2 to total colectomy Acute hypokalemia likely 2/2 to decreased PO intake Bronchiectasis Moderate-sized chronic appearing cavitary lesion s/p bronchoscopy with negative fungal, viral, bacterial cultures negative for malignancy done at the [facility] in [place] (do not have records so unsure how previous attending knows this- requesting official documents) Reducible abdominal hernia Cholelithiasis Emphysema/COPD Chronic granulomatous disease 2.3 cm enhancing left adrenal lesion Pulmonary cachexia Familial adenomatous polyp, status post total proctocolectomy with pouch ileoanal anastomosis Anemia of chronic disease Bandemia secondary to community acquired pneumonia Hypercalcemia Abnormal liver function tests with hyperbilirubinemia TIME SPENT ON DISCHARGE: 25 minutes. Vital Signs/I&Os Vital Signs Date Time Temp Pulse Resp B/P (MAP) Pulse Ox O2 Delivery O2 Flow Rate FiO2 06/15/20 12:52 20 06/15/20 12:22 Room Air 06/13/20 09:00 5.0 06/12/20 14:00 99.0 91 90/41 (65) 93 I&O- Last 24 Hours up to 6 AM 06/15/20 06:00 Intake Total 200 ml Output Total 200 ml Balance 0 ml Microbiology Microbiology 06/08/20 Blood Culture - Final, Complete NO GROWTH AFTER 5 DAYS 06/08/20 Blood Culture - Final, Complete NO GROWTH AFTER 5 DAYS 06/08/20 Respiratory Virus Panel (PCR) ([facility]) - Final, Complete Discharge Medications Scheduled Loperamide HCl (Loperamide) 2 Mg Capsule, 2 MG PO TID, (Reported) Allergies Coded Allergies: No Known Allergies (Unverified , 06/08/20) Anna Bautista MD June 15, 2020 16:54
== END 2020-06-15 14:15 | disposition expired | DRG 393 ==
LOC: M ED 12:25 → M ED INP 15:24 → M MS5PR 16:15 → OBSVTOIN 17:35
PROVIDERS: ADMIT General Practice; ATTEND Internal Medicine
PROC: 0DH63UZ Insertion of Feeding Device into Stomach, Percutaneous Approach (ICD-10-PCS; principal; 2020-06-10 09:30)
DX: K91.89 Other postprocedural complications and disorders of digestive system (principal); E43 Unspecified severe protein-calorie malnutrition; J18.9 Pneumonia, unspecified organism; R64 Cachexia; J44.0 Chronic obstructive pulmonary disease with (acute) lower respiratory infection; Z68.1 Body mass index [BMI] 19.9 or less, adult; J98.4 Other disorders of lung; D71 Functional disorders of polymorphonuclear neutrophils; J47.9 Bronchiectasis, uncomplicated; R19.7 Diarrhea, unspecified; E83.52 Hypercalcemia; E88.09 Other disorders of plasma-protein metabolism, not elsewhere classified; R62.7 Adult failure to thrive; D63.8 Anemia in other chronic diseases classified elsewhere; E80.6 Other disorders of bilirubin metabolism; F17.210 Nicotine dependence, cigarettes, uncomplicated; Z51.5 Encounter for palliative care; Z96.651 Presence of right artificial knee joint; R91.1 Solitary pulmonary nodule